=== PATIENT | female | born 1955 | race Caucasian/White ===

== ENCOUNTER → 2016-12-24 | Outpatient (CLI) | payer OTHER ==
[2016-12-24 09:03] LABS: BUN/CREATININE RATIO 24 (0-10)
== END ==
LOC: LAB 07:45
PROVIDERS: Family Medicine
DX: E78.5 Hyperlipidemia, unspecified (principal); E11.9 Type 2 diabetes mellitus without complications; Z88.0 Allergy status to penicillin; Z88.2 Allergy status to sulfonamides; Z88.8 Allergy status to other drugs, medicaments and biological substances
CPT/HCPCS: 36415; 80053; 80061; 83036

== ENCOUNTER 2017-01-17 08:23 | Emergency (ER) | payer OTHER ==
[2017-01-17 09:37] LABS: HEMOGLOBIN 14.4 gm/dl (12.3-15.3); RED BLOOD COUNT 4.59 M/UL (4.00-5.10); WHITE BLOOD COUNT 10.6 K/UL (4.5-11.0)
[2017-01-17 09:55] LABS: BUN/CREATININE RATIO 20 (0-10)
== END 2017-01-17 15:52 | disposition home or self-care (01) ==
LOC: ER1 08:23
PROVIDERS: Physician Assistant
DX: R07.89 Other chest pain (principal); M54.9 Dorsalgia, unspecified; R74.8 Abnormal levels of other serum enzymes; E11.9 Type 2 diabetes mellitus without complications; K21.9 Gastro-esophageal reflux disease without esophagitis; I10 Essential (primary) hypertension; Z90.710 Acquired absence of both cervix and uterus; Z90.49 Acquired absence of other specified parts of digestive tract; Z88.0 Allergy status to penicillin; Z88.2 Allergy status to sulfonamides
CPT/HCPCS: 71010; 80053; 82150; 82550; 82553; 83690; 83874; 84484; 85025; 85379; 93005; 99285; J7050; Q9963

== ENCOUNTER → 2017-01-27 | Outpatient (CLI) | payer OTHER | LOC: KOH-I 01-04 10:00 | DX: R74.0 Nonspecific elevation of levels of transaminase and lactic acid dehydrogenase [LDH] (principal); E78.2 Mixed hyperlipidemia; K76.0 Fatty (change of) liver, not elsewhere classified; Z90.49 Acquired absence of other specified parts of digestive tract | CPT/HCPCS: 76700 ==

== ENCOUNTER → 2017-02-04 | Outpatient (CLI) | payer OTHER | LOC: RAD 08:00 | DX: R10.31 Right lower quadrant pain (principal); N20.0 Calculus of kidney; K57.30 Diverticulosis of large intestine without perforation or abscess without bleeding; I70.90 Unspecified atherosclerosis | CPT/HCPCS: 74270 ==

== ENCOUNTER → 2017-02-15 | Outpatient (CLI) | payer OTHER | LOC: LAB 08:37 | DX: R10.31 Right lower quadrant pain (principal); K86.89 Other specified diseases of pancreas | CPT/HCPCS: 36415; 80076; 82150; 83690 ==

== ENCOUNTER → 2017-03-29 | Outpatient (CLI) | payer OTHER ==
[2017-03-29 10:41] LABS: BUN/CREATININE RATIO 17 (0-10)
== END ==
LOC: LAB 09:33
PROVIDERS: Family Medicine
DX: E78.2 Mixed hyperlipidemia (principal)
CPT/HCPCS: 36415; 80053; 80061; 81001; 87086

== ENCOUNTER → 2017-04-12 | Outpatient (CLI) | payer OTHER | LOC: LAB 10:48 | DX: M79.671 Pain in right foot (principal); M79.672 Pain in left foot; E78.2 Mixed hyperlipidemia; M77.32 Calcaneal spur, left foot | CPT/HCPCS: 73630; 81001; 87086 ==

== ENCOUNTER → 2017-07-01 | Outpatient (CLI) | payer OTHER ==
[2017-07-01 10:54] LABS: BUN/CREATININE RATIO 25 (0-10)
== END ==
LOC: LAB 07:54
PROVIDERS: Podiatrist Foot & Ankle Surgery
DX: E78.2 Mixed hyperlipidemia (principal); R25.2 Cramp and spasm; G60.8 Other hereditary and idiopathic neuropathies; E55.9 Vitamin D deficiency, unspecified; E53.9 Vitamin B deficiency, unspecified
CPT/HCPCS: 36415; 80053; 80061; 82607; 82746; 84207; 84425

== ENCOUNTER → 2020-11-06 | Outpatient (CLI) | payer MEDICARE, OTHER ==
[~2020-11-06] MED LIST: ANTIVERT 25MG T25 MG PO
[2020-11-06 07:42] LABS: HEMOGLOBIN 14.2 gm/dl (12.3-15.3); RED BLOOD COUNT 4.69 M/UL (4.00-5.10); WHITE BLOOD COUNT 6.4 K/UL (4.5-11.0)
[2020-11-06 08:06] LABS: BUN/CREATININE RATIO 20 (0-10)
== END ==
LOC: LAB 07:07
PROVIDERS: Family Medicine
DX: I10 Essential (primary) hypertension (principal); E78.2 Mixed hyperlipidemia
CPT/HCPCS: 36415; 80053; 80061; 85027

== ENCOUNTER → 2020-11-08 | Outpatient (CLI) | payer MEDICARE, OTHER | LOC: EXRD 11:06 | DX: M79.662 Pain in left lower leg (principal); M79.89 Other specified soft tissue disorders | CPT/HCPCS: 93971 ==

== ENCOUNTER → 2020-11-11 | Outpatient (CLI) | payer MEDICARE, OTHER ==
[2020-11-11 11:52] LABS: HEMOGLOBIN 14.3 gm/dl (12.3-15.3); RED BLOOD COUNT 4.54 M/UL (4.00-5.10); WHITE BLOOD COUNT 6.4 K/UL (4.5-11.0)
[2020-11-11 12:26] LABS: BUN/CREATININE RATIO 25 (0-10)
[2020-11-12 09:14] LABS: SARS COV-2 IGG AB Negative (Negative)
[2020-11-12 11:14] LABS: CREATININE, URINE 139.8 mg/dL (Not Estab.)
== END ==
LOC: LAB 11:15
PROVIDERS: Family Medicine
DX: E11.9 Type 2 diabetes mellitus without complications (principal); I10 Essential (primary) hypertension; E78.2 Mixed hyperlipidemia; Z71.89 Other specified counseling; Z01.84 Encounter for antibody response examination; Z20.822 Contact with and (suspected) exposure to COVID-19
CPT/HCPCS: 36415; 80053; 80061; 82043; 82570; 85027; 86769

== ENCOUNTER → 2021-02-13 | Outpatient (CLI) | payer MEDICARE, OTHER ==
[2021-02-13 09:17] LABS: HEMOGLOBIN 13.7 gm/dl (12.3-15.3); RED BLOOD COUNT 4.42 M/UL (4.00-5.10); WHITE BLOOD COUNT 4.7 K/UL (4.5-11.0)
[2021-02-13 10:00] LABS: BUN/CREATININE RATIO 23 (0-10)
[2021-02-14 10:14] LABS: CREATININE, URINE 183.3 mg/dL (Not Estab.)
== END ==
LOC: LAB 07:24
PROVIDERS: Family Medicine
DX: E55.9 Vitamin D deficiency, unspecified (principal); E78.5 Hyperlipidemia, unspecified; I10 Essential (primary) hypertension; N39.0 Urinary tract infection, site not specified; E11.9 Type 2 diabetes mellitus without complications
CPT/HCPCS: 36415; 80053; 80061; 81001; 82043; 82570; 85027; 87077; 87086; 87186

== ENCOUNTER → 2021-03-20 | Outpatient (CLI) | payer MEDICARE, OTHER | LOC: KOH-I 08:00 | DX: N39.0 Urinary tract infection, site not specified (principal); N20.0 Calculus of kidney; K57.30 Diverticulosis of large intestine without perforation or abscess without bleeding | CPT/HCPCS: 74176 ==

== ENCOUNTER → 2021-05-05 | Outpatient (CLI) | payer MEDICARE ==
[2021-05-05 09:26] LABS: BUN/CREATININE RATIO 19 (0-10)
[2021-05-06 09:30] LABS: VITAMIN D, 25-HYDROXY 42.6 ng/mL (30.0-100.0)
[2021-05-06 13:12] LABS: MITOCHONDRIAL (M2) ANTIBODY 119.2 Units (0.0-20.0)
== END ==
LOC: LAB 07:11
PROVIDERS: Family Medicine
DX: E78.2 Mixed hyperlipidemia (principal); R76.8 Other specified abnormal immunological findings in serum; N39.0 Urinary tract infection, site not specified; E55.9 Vitamin D deficiency, unspecified; Z01.812 Encounter for preprocedural laboratory examination; Z20.822 Contact with and (suspected) exposure to COVID-19
CPT/HCPCS: 36415; 80053; 80061; 81001; 87086; U0003

== ENCOUNTER → 2021-10-21 | Outpatient (CLI) | payer MEDICARE ==
[2021-10-21 12:09] LABS: HEMOGLOBIN 14.9 gm/dl (12.3-15.3); RED BLOOD COUNT 4.76 M/UL (4.00-5.10)
[2021-10-22 07:11] LABS: ESTIM. AVG GLU (EAG) 148 mg/dL (.); HEMOGLOBIN A1C 6.8 % (4.8-5.6)
[2021-10-22 09:11] LABS: A/G RATIO 1.9 (1.2-2.2); ALKALINE PHOSPHATASE, S 90 IU/L (44-121); ALT (SGPT) 36 IU/L (0-32); AST (SGOT) 41 IU/L (0-40); BILIRUBIN, TOTAL 0.5 mg/dL (0.0-1.2); BUN 17 mg/dL (8-27); BUN/CREATININE RATIO 20 (12-28); CALCIUM, SERUM 9.8 mg/dL (8.7-10.3); CARBON DIOXIDE, TOTAL 19 mmol/L (20-29); CHLORIDE, SERUM 101 mmol/L (96-106); CREATININE, SERUM 0.86 mg/dL (0.57-1.00); EGFR IF AFRICN AM 80 (>59); EGFR IF NONAFRICN AM 70 (>59); GLOBULIN, TOTAL 2.5 g/dL (1.5-4.5); GLUCOSE, SERUM 128 mg/dL (65-99); POTASSIUM, SERUM 4.4 mmol/L (3.5-5.2); PROTEIN, TOTAL, SERUM 7.3 g/dL (6.0-8.5); SODIUM, SERUM 138 mmol/L (134-144)
[2021-10-22 10:11] LABS: CHOLESTEROL, TOTAL 278 mg/dL (100-199); HDL CHOLESTEROL 64 mg/dL (>39); LDL CHOLESTEROL CALC 178 mg/dL (0-99); LDL/HDL RATIO 2.8 ratio (0.0-3.2); T. CHOL/HDL RATIO 4.3 ratio (0.0-4.4); TRIGLYCERIDES 196 mg/dL (0-149)
[2021-10-22 14:11] LABS: MITOCHONDRIAL (M2) ANTIBODY 124.5 Units (0.0-20.0)
== END ==
LOC: LAB 10:34
PROVIDERS: Family Medicine
DX: E11.9 Type 2 diabetes mellitus without complications (principal); E78.2 Mixed hyperlipidemia; R76.8 Other specified abnormal immunological findings in serum
CPT/HCPCS: 36415; 80053; 80061; 83036; 85027

== ENCOUNTER → 2021-12-24 | Outpatient (CLI) | payer MEDICARE | LOC: RAD 08:51 | DX: R91.1 Solitary pulmonary nodule (principal) | CPT/HCPCS: 71046 ==

== ENCOUNTER → 2022-02-24 | Outpatient (CLI) | payer MEDICARE | LOC: CT 08:29 | DX: K22.70 Barrett's esophagus without dysplasia (principal); R91.1 Solitary pulmonary nodule; W57.XXXA Bitten or stung by nonvenomous insect and other nonvenomous arthropods, initial encounter | CPT/HCPCS: 71250 ==

== ENCOUNTER → 2022-04-06 | Outpatient (CLI) | payer MEDICARE ==
[2022-04-06 09:17] LABS: HEMOGLOBIN 14.1 gm/dl (12.3-15.3); RED BLOOD COUNT 4.51 M/UL (4.00-5.10); WHITE BLOOD COUNT 4.7 K/UL (4.5-11.0)
[2022-04-06 09:52] LABS: BUN/CREATININE RATIO 17 (0-10)
[2022-04-07 10:15] LABS: CREATININE, URINE 11.3 mg/dL (Not Estab.); MICROALB/CREAT RATIO <27 (0-29)
== END ==
LOC: LAB 08:47
PROVIDERS: Family Medicine
DX: E78.2 Mixed hyperlipidemia (principal); E11.9 Type 2 diabetes mellitus without complications; E55.9 Vitamin D deficiency, unspecified; Z79.899 Other long term (current) drug therapy
CPT/HCPCS: 36415; 80053; 80061; 82043; 82570; 82607; 83735; 85027

== ENCOUNTER → 2022-07-07 | Outpatient (CLI) | payer MEDICARE | LOC: RAD 08:36 | DX: M25.562 Pain in left knee (principal); K22.70 Barrett's esophagus without dysplasia | CPT/HCPCS: 73564 ==